=== PATIENT | female | born 1990 | race Caucasian/White ===

== ENCOUNTER → 2016-03-26 | Outpatient (CLI) | payer OTHER ==
[~2016-03-26] MED LIST: COLA100C PO; IBUP60TA PO; MOM30SS PO; PERCOCET PO
--- NOTE | 2016-03-26 15:24 | REP ---
OBSTETRIC SONOGRAPHY: HISTORY: Supervision of followup anatomy, face, ventricular outflow tracts and umbilical cord. FINDINGS: Scanning through the gravid uterus demonstrates a viable single intrauterine gestation in a breech lie. motion is observed and heart rate is recorder 141 beats per minute. Anterior grade 0 placenta is seen without evidence of previa or abruption. Amniotic fluid is subjectively normal. Closed cervical length is 5.0 cm. No extrauterine abnormalities observed. There has been appropriate interval growth. No anomaly is seen. The following anatomic structures are identified and felt to be sonographically unremarkable: cranium, choroid plexus, cavum, cerebellum and posterior fossa, face and profile, lungs, right and left ventricular cardiac outflow tract views, diaphragm, left-sided stomach, abdominal wall cord insertion, three-vessel umbilical cord, kidneys and bladder, spine, upper and lower extremities. Biometry Chart: BPD 6.0 cm = 24 weeks 3 days HC 21.7 cm = 23 weeks 5 days AC 19.9 cm = 24 weeks 4 days FL 4.2 cm = 23 weeks 4 days HL 4.0 cm = 24 weeks 3 days CD 2.7 cm = 24 weeks 3 days HC/AC ratio normal 1.09. Cephalic index normal 0.77. Estimated weight 662 grams, 1 pound 7 ounces, 37th percentile for 24 weeks 2 days. IMPRESSION: Viable single intrauterine gestation at 23 weeks 5 days by today's composite sonographic criteria. Expected gestational age estimate based on prior sonography is 24 weeks 2 days. AVI by prior sonography July 14, 2016. anatomic survey is felt to be complete in conjunction with the prior study. Signed by Thierry Rod MD 03/26/2016 03:40 P
== END ==
LOC: M SMT 10:53
PROVIDERS: ATTEND Obstetrics & Gynecology
DX: Z34.82 Encounter for supervision of other normal pregnancy, second trimester (principal)

== ENCOUNTER → 2016-04-29 | Outpatient (CLI) | payer OTHER ==
[2016-04-29 20:01] LABS: BASO % 0.3 % (0.0-1.0); EOS # 0.2 K/mm3 (0.0-0.50); EOS % 1.9 % (0.0-3.0); LARGE UNSTAINED CELL # 0.1 K/mm3 (0.0-0.4); LARGE UNSTAINED CELL % 0.9 % (0.0-4.0); LYMPH # 1.8 K/mm3 (1.5-6.5); LYMPH % 17.7 % (24.0-44.0); MEAN CORPUSCULAR HEMOGLOBIN 25.3 pg (27.0-33.0); MEAN CORPUSCULAR HGB CONC 31.4 g/dl (32.0-36.5); MEAN CORPUSCULAR VOLUME 80.8 fl (80.0-96.0); MONO # 0.6 K/mm3 (0.0-0.8); MONO % 5.6 % (0.0-5.0); NEUTROPHILS # 7.3 K/mm3 (1.8-7.7); NEUTROPHILS % 73.6 % (36.0-66.0); PLATELET COUNT, AUTOMATED 255 k/mm3 (150-450); RED CELL DISTRIBUTION WIDTH 15.1 % (11.5-14.5); WHITE BLOOD COUNT 9.9 K/mm3 (4.0-10.0)
== END ==
LOC: M WUC 15:25
PROVIDERS: ATTEND Advanced Practice Midwife
DX: O10.013 Pre-existing essential hypertension complicating pregnancy, third trimester (principal); Z3A.00 Weeks of gestation of pregnancy not specified

== ENCOUNTER → 2016-05-14 | Outpatient (REF) | payer OTHER | LOC: M LAB REF 17:10 | PROVIDERS: ATTEND Advanced Practice Midwife | DX: Z34.83 Encounter for supervision of other normal pregnancy, third trimester (principal) ==

== ENCOUNTER → 2016-05-22 | Outpatient (CLI) | payer OTHER ==
--- NOTE | 2016-05-22 12:24 | REP ---
OB ULTRASOUND AND BIOPHYSICAL PROFILE: Real-time sonographic evaluation of the gravid uterus is performed. There is a single living intrauterine gestation. The estimated gestational age is 32 weeks 3 days with EDC 07/14/2016. Amniotic fluid is within normal limits. ROYCE 15.4 within normal range of 8.5 to 24.3. Biophysical profile score 8 out of 8. S/D ratio 2.41 within the normal of 2.25 to 3.25. RI is 0.59 lower limits of normal range 0.59 to 0.75. position is vertex. Placenta anterior and grade 3 with no previa or abruption. IMPRESSION: Biophysical profile score 8 out of 8. Signed by Juanjose Dobbs MD 05/22/2016 01:27 P
== END ==
LOC: M RAD 11:18
PROVIDERS: ATTEND Advanced Practice Midwife
DX: O10.013 Pre-existing essential hypertension complicating pregnancy, third trimester (principal); Z3A.32 32 weeks gestation of pregnancy

== ENCOUNTER → 2016-05-29 | Outpatient (CLI) | payer OTHER ==
--- NOTE | 2016-05-29 12:11 | REP ---
Clinical: Anatomical evaluation. Comparison: 05/22/2016 . Findings: Examination demonstrates a single live intrauterine in cephalic presentation. motion is identified by technologist. Placenta is noted anterior fundal and grade 2 without evidence for placenta previa or abruption. Amniotic fluid volume is normal. Cervix measures 4.2 cm in length and appears closed. Nuchal cord cannot be excluded. Gestational age by LMP 33 weeks 1 day with AVI 07/16/2016 . Gestational age by first US 33 weeks 3 days with AVI 07/14/2016 . FHR equals 144 beats per minute. Biophysical profile score equals 8/8. Umbilical cord SD ratio equals 2.72 (2.0 - 3.0) Impression: Single live intrauterine in cephalic presentation. Nuchal cord cannot be excluded. Biophysical profile score equals 8/8. Signed by Ernie Helton MD 05/29/2016 12:02 P
== END ==
LOC: M RAD 11:11
PROVIDERS: ATTEND Advanced Practice Midwife
DX: Z36 Encounter for antenatal screening of mother (principal); Z3A.33 33 weeks gestation of pregnancy

== ENCOUNTER → 2016-06-04 | Outpatient (CLI) | payer OTHER ==
[~2016-06-04] MED LIST changes: -COLA100C PO; +COLA100C3 PO
--- NOTE | 2016-06-04 11:45 | REP ---
OB ULTRASOUND BIOPHYSICAL PROFILE: Real-time sonographic evaluation of gravid uterus performed. There is a single living intrauterine gestation. The estimated gestational age is 34 weeks 0 days with EDC 07/16/2016. Cervix is closed and measures 3.6 cm in length. heart rate 128 beats per minute. Amniotic fluid within normal limits. ROYCE 12.8 within normal range of 8.1 to 24.8. Biophysical profile score 8 out of 8. S/D ratio 2.53 within normal range of 2.0 to 3.0. RI 0.60 within normal range of 0.59 to 0.75. kidneys and bladder are visualized and are grossly unremarkable. position vertex. Placenta is anterior and grade 2 with no previa or abruption. There may be a nuchal cord. IMPRESSION: Biophysical profile score 8 out of 8. Signed by Juanjose Dobbs MD 06/04/2016 04:51 P
== END ==
LOC: M RAD 10:14
PROVIDERS: ATTEND Advanced Practice Midwife
DX: O10.013 Pre-existing essential hypertension complicating pregnancy, third trimester (principal); Z3A.34 34 weeks gestation of pregnancy

== ENCOUNTER → 2016-06-12 | Outpatient (CLI) | payer OTHER ==
--- NOTE | 2016-06-12 15:00 | REP ---
OB ULTRASOUND: Real-time sonographic evaluation of the gravid uterus is performed utilizing transabdominal technique. There is a single living intrauterine gestation. Estimated gestational age 35 weeks 1 days, EDC 07/16/2016. Today's measurements indicate appropriate growth. BPD 89 mm = 35 weeks 5 days, 60th percentile HC 315 mm = 35 weeks 2 days, 53rd percentile AC 335 mm = 37 weeks 3 days, 84th percentile Femur length 69 mm = 35 weeks 3 days, 55th percentile HC/AC ratio 0.94 within normal range. Estimated weight 2954 grams, 74th percentile. Cervix is closed and measures 4.4 cm in length. heart rate 157 beats per minute. Amniotic fluid within normal limits. ROYCE is 17.8 within normal range of 7.9-24.9. Biophysical profile score 8 out of 8. S/D ratio normal at 2.03. RI 0.51 slightly below normal range of 0.59 to 0.75. stomach, kidneys, bladder, and spine are visualized and are grossly unremarkable. position vertex. Placenta is anterior and grade 2 with no previa or abruption. I cannot exclude a nuchal cord. IMPRESSION: Appropriate growth. Normal ROYCE. Biophysical profile score 8 out of 8. Signed by Juanjose Dobbs MD 06/12/2016 03:30 P
== END ==
LOC: M RAD 10:12
PROVIDERS: ATTEND Advanced Practice Midwife
DX: O10.013 Pre-existing essential hypertension complicating pregnancy, third trimester (principal); Z3A.35 35 weeks gestation of pregnancy

== ENCOUNTER → 2016-06-17 | Outpatient (REF) | payer OTHER | LOC: M LAB REF 17:01 | PROVIDERS: ATTEND Specialist | DX: O10.013 Pre-existing essential hypertension complicating pregnancy, third trimester (principal); Z3A.00 Weeks of gestation of pregnancy not specified ==

== ENCOUNTER → 2016-06-18 | Outpatient (CLI) | payer OTHER ==
--- NOTE | 2016-06-19 03:33 | REP ---
Clinical: Essential hypertension for Biophysical profile. Comparison: 06/12/2016. Findings: Ultrasound examination demonstrates a single live advanced gestation in cephalic presentation. Placenta is noted anteriorly and grade III without evidence for placenta previa or abruption. Nuchal cord cannot be excluded. Gestational age by LMP 36 weeks 0 days with AVI 07/16/2016 Biophysical profile score equals 8/8. heart rate equals 141 beats per minute. Amniotic fluid index equals 17.4 cm (7.7 - 24.9). Impression: Biophysical profile score equals 8/8. Nuchal cord cannot be excluded. Signed by Ernie Helton MD 06/19/2016 03:25 A
== END ==
LOC: M RAD 10:26
PROVIDERS: ATTEND Advanced Practice Midwife
DX: Z36 Encounter for antenatal screening of mother (principal); Z3A.36 36 weeks gestation of pregnancy

== ENCOUNTER → 2016-06-25 | Outpatient (CLI) | payer OTHER ==
[~2016-06-25] MED LIST changes: +LABE10TAB PO
--- NOTE | 2016-06-25 20:33 | REP ---
Clinical: Gestational diabetes for biophysical profile. Comparison: 420 . Findings: Examination demonstrates a single live intrauterine in cephalic presentation. motion is identified by technologist. Placenta is noted anteriorly and grade II without evidence for placenta previa or abruption. Amniotic fluid volume is normal. Cervix measures 3.5 cm in length and appears closed. No evidence for nuchal cord. Gestational age by LMP 37 weeks 0 days with AVI 07/16/2016 . Gestational age by first ultrasound 37 weeks 2 days with AVI 07/14/2016 . FHR equals 139 beats per minute. Amniotic fluid index equals 15.8 cm (7.5 - 24.4). Umbilical cord SD ratio equals 2.52 (1.60 - 2.60). Impression: Single live advanced gestation in cephalic presentation. Biophysical profile score equals 8/8. Amniotic fluid index equals 15.8 cm. Signed by Ernie Helton MD 06/25/2016 04:45 P
== END ==
LOC: M RAD 09:51
PROVIDERS: ATTEND Advanced Practice Midwife
DX: O10.013 Pre-existing essential hypertension complicating pregnancy, third trimester (principal); Z3A.37 37 weeks gestation of pregnancy

== ENCOUNTER 2016-07-02 05:38 | Inpatient (IN) | payer OTHER ==
[~2016-07-02] VITALS: Ht 162.6 cm; Wt 138.0 kg
[2016-07-02] VITALS (7 sets, daily range): BP systolic 105–187; BP diastolic 55–85
[2016-07-02] MEDS ORDERED: BICITRA 30ML SOLN UDC PO ONE (06:00)
[2016-07-02] MEDS ORDERED: LR 800 ML IV ONE (06:00)
[2016-07-02] MEDS ORDERED: LR 1,000 ML IV SCH ×2 (06:30→09:45)
[2016-07-02] MEDS ORDERED: FERR325T3 PO (06:45)
[2016-07-02 06:55] LABS: MEAN CORPUSCULAR HEMOGLOBIN 26.1 pg (27.0-33.0); MEAN CORPUSCULAR HGB CONC 32.4 g/dl (32.0-36.5); MEAN CORPUSCULAR VOLUME 80.7 fl (80.0-96.0); RED CELL DISTRIBUTION WIDTH 16.7 % (11.5-14.5)
[2016-07-02] MEDS ORDERED: NALBUPHINE HCL 10 MG/ML AMP (J2300) IV PRN ×2 (07:30→09:45)
[2016-07-02] MEDS ORDERED: NALOXONE INJ 0.4 MG/1 ML VIAL (J2310) IV PRN ×2 (07:30)
[2016-07-02] MEDS ORDERED: ONDANSETRON 4MG/2ML VIAL (J2405) IV PRN ×3 (07:30→09:45)
[2016-07-02] MEDS ORDERED: METOCLOPRAMIDE INJ 10MG/2ML VIAL (J2765) IV PRN ×2 (07:30→09:45)
[2016-07-02] MEDS ORDERED: ONDANSETRON 4MG/2ML VIAL (J2405) As Ordered ONE (08:08)
[2016-07-02] MEDS ORDERED: PHENYLephrine HCL 500 MCG/5 ML (100MCG/ML) SYRINGE (J2370) As Ordered ONE ×2 (08:08→08:17)
[2016-07-02] MEDS ORDERED: OXYTOCIN INJ 10 UNITS/ML VIAL (J2590) As Ordered ONE (08:08)
[2016-07-02] MEDS ORDERED: MORPHINE PRES-FREE INJ 10 MG/10 ML VIAL (J2274) As Ordered ONE (08:08)
[2016-07-02] MEDS ORDERED: KETOROLAC 60 MG/2 ML VIAL (J1885) As Ordered ONE (08:48)
[2016-07-02] MEDS: PRENATAL VITAMIN TAB PO SCH (09:00)
[2016-07-02] MEDS ORDERED: PERCOCET 5MG/325MG TAB PO PRN ×2 (09:30→09:45)
[2016-07-02] MEDS ORDERED: DOCUSATE SODIUM 100 MG CAP PO PRN (09:30)
[2016-07-02] MEDS ORDERED: MEASLES,MUMPS,RUBELLA VACCINE INJ (MMR-II) (90707) SC SCH (09:30)
[2016-07-02] MEDS ORDERED: OXYTOCIN DRIP 30 UNITS in APPROPRIATE DILUENT 1 EA IV ONE (09:30)
[2016-07-02] MEDS ORDERED: RHOGAM 300 MCG (1500 IU) INJ (J2790) IM SCH (09:30)
[2016-07-02] MEDS ORDERED: fentaNYL 100 MCG/2 ML INJECTION (J3010) IV PRN (09:45)
[2016-07-02] MEDS ORDERED: MEPERIDINE INJ 25 MG/ML VIAL (J2175) IV PRN (09:45)
--- NOTE | 2016-07-02 14:11 | RO ---
DATE OF PROCEDURE: 07/02/2016 PREPROCEDURE DIAGNOSIS: 38 weeks, chronic hypertension, prior section times two. POSTPROCEDURE DIAGNOSIS: 38 weeks, chronic hypertension, prior section times two. PROCEDURE: Repeat low transverse section and bilateral tubal ligation. SURGEON: Dr. Aram Romano PET STORE MERCHANDISER: Rut Bustos CNM ANESTHESIA: Spinal. ESTIMATED BLOOD LOSS: 600 mL. FINDINGS: 8 pound 3 ounce, 3722 gram, female , Apgars 8 and 9, vertex position. 2-3 cm paratubal cyst involving the left distal fallopian tube. Otherwise normal pelvis. There were omental adhesions to the anterior abdominal wall and moderate scarring of the bladder flap anteriorly. DESCRIPTION OF PROCEDURE: The patient was taken to the operating room where spinal anesthesia was induced. She was prepped and draped in sterile fashion in the supine position. A Meier catheter was placed. A Pfannenstiel skin incision was made with the scalpel and carried through to the fascia. The fascia was nicked and extended and the fascia was dissected off the rectus muscles. The peritoneal cavity was entered. A bladder flap was created. A curvilinear incision was made in the lower uterine segment until the bulging membranes were noted. This was extended manually. Membranes ruptured with clear fluid. The infant delivered in the vertex position without difficulty. The shoulders delivered with ease. The infant cried spontaneously and was handed to the awaiting nurses. The placenta was expressed. The uterus was exteriorized and cleared of debris. The uterine incision was closed with #0 Vicryl in a running locked fashion. A second imbricating layer of #0 Vicryl was placed. The left fallopian tube was noted to have a paratubal cyst at the distal ends. A Gabriela clamp was used to cross clamp the distal end of the fallopian tube, including the fimbria. This included the paratubal cyst. The segment of tube was excised and secured with #0 Vicryl suture. The right fallopian tube was grasped at its mid portion with a Cari clamp. A window was created in the peritoneum. A knuckle of tube was secured with #3-0 chromic on either side of the Cari clamps. The segment of tube was sent to pathology. The uterus was placed back in the abdominal cavity. Omental adhesions to the interior abdominal wall were taken down sharply. The peritoneum was closed with #2-0 Vicryl in a running fashion. The fascia was closed with #0 Vicryl in a running fashion. The deep layer was irrigated and closed with #3-0 chromic. The skin was closed with #4-0 Monocryl subcuticular sutures. Sponge, instrument and needle counts were correct.
[2016-07-02] MEDS: KETOROLAC 30 MG/ML VIAL (J1885) IV SCH ×2 (15:15→20:52)
[2016-07-02] MEDS: LR 1,000 ML IV SCH ×2 (16:50→17:21)
[2016-07-03] MEDS: LR 1,000 ML IV SCH (01:21)
[2016-07-03 01:48] VITALS: BP 133/59
[2016-07-03] MEDS: KETOROLAC 30 MG/ML VIAL (J1885) IV SCH (02:39)
[2016-07-03 05:42] VITALS: BP 122/56
[2016-07-03] MEDS: PERCOCET 5MG/325MG TAB PO PRN ×3 (06:40→19:52)
[2016-07-03 07:03] LABS: MEAN CORPUSCULAR HEMOGLOBIN 26.6 pg (27.0-33.0); MEAN CORPUSCULAR HGB CONC 32.5 g/dl (32.0-36.5); MEAN CORPUSCULAR VOLUME 81.7 fl (80.0-96.0); RED CELL DISTRIBUTION WIDTH 17.1 % (11.5-14.5)
[2016-07-03] MEDS: PRENATAL VITAMIN TAB PO SCH (08:27)
[2016-07-03 10:30] VITALS: BP 134/63
[2016-07-03] MEDS: IBUPROFEN 800 MG TAB PO SCH ×2 (11:20→18:49)
[2016-07-03 14:30] VITALS: BP 129/60
[2016-07-03] MEDS ORDERED: OXYC1TAB23 PO (16:42)
[2016-07-03 18:00] VITALS: BP 133/62
[2016-07-03 21:44] VITALS: BP 129/68
[2016-07-04] MEDS: PERCOCET 5MG/325MG TAB PO PRN ×2 (00:38→07:47)
[2016-07-04] MEDS: IBUPROFEN 800 MG TAB PO SCH ×2 (02:09→10:20)
[2016-07-04 05:53] VITALS: BP 132/68
[2016-07-04] MEDS: PRENATAL VITAMIN TAB PO SCH (07:47)
[2016-07-04] MEDS ORDERED: COLA100C3 PO (10:00)
[2016-07-04] MEDS ORDERED: IBUP-1114 PO (10:00)
--- NOTE | 2016-07-05 07:48 | DSES ---
DATE OF ADMISSION: 07/02/2016 DATE OF DISCHARGE: 07/04/2016 DISCHARGE DIAGNOSES: 1. Chronic hypertension. 2. Repeat section with bilateral tubal ligation. PROCEDURE PERFORMED WHILE IN HOSPITAL: 1. Spinal anesthesia. 2. Repeat section. 3. Bilateral tubal ligation. DISCHARGE CONDITION: Stable. HISTORY AND HOSPITAL COURSE: This patient is a 26-year-old who presented for repeat section at 38 weeks secondary to chronic hypertension and a history of prior two sections. She also expressed satisfied parity, undesired fertility. She underwent an uncomplicated section with bilateral tubal ligation productive of a liveborn female infant, score 8 and 9. Weight was 8 pounds 3 ounces (3722 grams). Estimated blood loss was 600 mL. She did well postoperatively, and by postoperative day #2 had met all discharge criteria, was discharged home in stable condition. PHYSICAL EXAMINATION: On day of discharge, her vital signs were stable. She was afebrile. General appearance was well appearing, no acute distress. Her abdomen was soft, nondistended and nontender. Incision was clean, dry, intact, well approximated. Extremities negative for calf tenderness. DISCHARGE MEDICATION: - Percocet DISCHARGE INSTRUCTIONS: 1. She was instructed to followup in 2 weeks for an incision check appointment. 2. Remain on pelvic rest for 6 weeks. 3. Report severe pain, heavy vaginal bleeding, fever or incisional issue.
== END 2016-07-04 12:30 | disposition home or self-care (01) | DRG 540 ==
LOC: M LDI 05:38 → M OBS 11:10
PROVIDERS: ADMIT Specialist; ATTEND Specialist
PROC: 0UB70ZZ Excision of Bilateral Fallopian Tubes, Open Approach (ICD-10-PCS; 2016-07-02)
PROC: 10D00Z1 Extraction of Products of Conception, Low, Open Approach (ICD-10-PCS; principal; 2016-07-02 07:30)
DX: O34.211 Maternal care for low transverse scar from previous cesarean delivery (principal); O10.92 Unspecified pre-existing hypertension complicating childbirth; Z37.0 Single live birth; Z3A.38 38 weeks gestation of pregnancy

== ENCOUNTER → 2016-11-28 | Outpatient (CLI) | payer OTHER ==
[~2016-11-28] MED LIST changes: -COLA100C3 PO; +COLA100C5 PO; +FERR325T3 PO; +IBUP-1114 PO; +OXYC1TAB23 PO
--- NOTE | 2016-11-28 12:43 | REP ---
LUMBAR SPINE, SIX VIEWS: HISTORY: Back pain. There is no acute fracture or subluxation. The L4-5 intervertebral disc is decreased in height consistent with disc degeneration. The facet joints are normal in appearance. IMPRESSION: Degenerative change as described above. Signed by Aram Keith MD 11/28/2016 12:45 P
--- NOTE | 2016-11-28 12:48 | REP ---
SACRUM AND COCCYX, THREE VIEWS: HISTORY: Back pain. There is no acute fracture or dislocation. The L4-5 intervertebral disc is decreased in height consistent with disc degeneration. IMPRESSION: Degenerative change as described above. Signed by Aram Keith MD 11/28/2016 01:01 P
--- NOTE | 2016-11-28 12:52 | REP ---
SI JOINTS, FOUR VIEWS: HISTORY: Back pain. There is no acute fracture or dislocation. The joint spaces are normal in appearance. IMPRESSION: Normal study. Signed by Aram Keith MD 11/28/2016 01:02 P
== END ==
LOC: M WUC 11:15
PROVIDERS: ATTEND Internal Medicine Cardiovascular Disease
DX: M51.36 Other intervertebral disc degeneration, lumbar region (principal)

== ENCOUNTER → 2017-01-08 | Outpatient (REF) | payer OTHER | LOC: M LAB REF 12:29 | PROVIDERS: ATTEND Physician Assistant | DX: J02.9 Acute pharyngitis, unspecified (principal) ==

== ENCOUNTER → 2017-04-20 | Outpatient (CLI) | payer OTHER ==
[2017-04-20 14:59] LABS: ALBUMIN 3.9 GM/DL (3.2-5.2); ALBUMIN/GLOBULIN RATIO 1.08 (1.00-1.93); ALKALINE PHOSPHATASE 75 U/L (45-117); ALT/SGPT 19 U/L (12-78); ANION GAP 6 MEQ/L (8-16); AST/SGOT 11 U/L (7-37); BILIRUBIN,TOTAL 0.3 MG/DL (0.2-1.0); BLOOD UREA NITROGEN 13 MG/DL (7-18); CALCIUM LEVEL 8.6 MG/DL (8.5-10.1); CARBON DIOXIDE LEVEL 27 MEQ/L (21-32); CHLORIDE LEVEL 108 MEQ/L (98-107); CHOLESTEROL LEVEL 181 MG/DL (<200); CHOLESTEROL RISK RATIO 3.016 (<5); GLOMERULAR FILTRATION RATE > 60.0 (>60); GLUCOSE, FASTING 86 MG/DL (70-100); HDL CHOLESTEROL 60 MG/DL (>40); LDL CHOLESTEROL 108.6 MG/DL (<100); NON-HDL-C 121 MG/DL; POTASSIUM SERUM 4.4 MEQ/L (3.5-5.1); SODIUM LEVEL 141 MEQ/L (136-145); TOTAL PROTEIN 7.5 GM/DL (6.4-8.2); TRIGLYCERIDES LEVEL 62 MG/DL (<150)
[2017-04-20 15:02] LABS: BASO # 0.1 10^3/uL (0.0-0.2); BASO % 0.7 % (0.0-1.0); EOS # 0.2 10^3/uL (0.0-0.50); EOS % 2.2 % (0.0-3.0); HEMATOCRIT 36.4 % (36.0-47.0); IMMATURE GRANULOCYTE % 0.3 % (0-3.0); LYMPH # 1.9 10^3/uL (1.5-6.5); LYMPH % 28.1 % (24.0-44.0); MEAN CORPUSCULAR HEMOGLOBIN 23.9 pg (27.0-33.0); MEAN CORPUSCULAR HGB CONC 30.2 g/dl (32.0-36.5); MONO # 0.5 10^3/uL (0.0-0.8); MONO % 7.7 % (0.0-5.0); NEUTROPHILS # 4.2 10^3/uL (1.8-7.7); PLATELET COUNT, AUTOMATED 311 10^3/uL (150-450); RED BLOOD COUNT 4.61 10^6/uL (4.00-5.40); WHITE BLOOD COUNT 6.9 10^3/uL (4.0-10.0)
[2017-04-20 15:14] LABS: ESTIMATED AVERAGE GLUCOSE 105 MG/DL (60-110); HEMOGLOBIN A1c 5.3 %
== END ==
LOC: M SMT 14:25
DX: E66.01 Morbid (severe) obesity due to excess calories (principal); Z68.42 Body mass index [BMI] 45.0-49.9, adult; Z79.899 Other long term (current) drug therapy
CPT/HCPCS: 80053

== ENCOUNTER → 2017-04-20 | Outpatient (CLI) | payer OTHER | LOC: M SMT 08:55 | DX: E66.01 Morbid (severe) obesity due to excess calories (principal); Z79.899 Other long term (current) drug therapy; Z68.42 Body mass index [BMI] 45.0-49.9, adult; Z53.9 Procedure and treatment not carried out, unspecified reason ==

== ENCOUNTER → 2017-08-20 | Outpatient (CLI) | payer OTHER | LOC: M RAD 10:51 | DX: N93.8 Other specified abnormal uterine and vaginal bleeding (principal); N85.2 Hypertrophy of uterus | CPT/HCPCS: 76856 ==

== ENCOUNTER → 2018-02-17 | Outpatient (CLI) | payer BC, OTHER ==
[2018-02-17 12:52] LABS: BASO # 0.1 10^3/uL (0.0-0.2); BASO % 0.8 % (0.0-1.0); EOS # 0.1 10^3/uL (0.0-0.50); EOS % 1.7 % (0.0-3.0); HEMATOCRIT 34.7 % (36.0-47.0); HEMOGLOBIN 10.2 g/dl (12.0-15.5); LYMPH # 2.3 10^3/uL (1.5-6.5); LYMPH % 29.6 % (24.0-44.0); MEAN CORPUSCULAR HEMOGLOBIN 22.3 pg (27.0-33.0); MEAN CORPUSCULAR HGB CONC 29.4 g/dl (32.0-36.5); MEAN CORPUSCULAR VOLUME 75.9 fl (80.0-96.0); MONO # 0.6 10^3/uL (0.0-0.8); MONO % 7.2 % (0.0-5.0); NEUTROPHILS # 4.6 10^3/uL (1.8-7.7); NEUTROPHILS % 60.2 % (36.0-66.0); PLATELET COUNT, AUTOMATED 325 10^3/uL (150-450); RED BLOOD COUNT 4.57 10^6/uL (4.00-5.40); WHITE BLOOD COUNT 7.6 10^3/uL (4.0-10.0)
[2018-02-17 13:32] LABS: ALBUMIN 3.6 GM/DL (3.2-5.2); ALT/SGPT 18 U/L (12-78); BILIRUBIN,TOTAL 0.3 MG/DL (0.2-1.0); BLOOD UREA NITROGEN 15 MG/DL (7-18); CALCIUM LEVEL 8.3 MG/DL (8.5-10.1); CARBON DIOXIDE LEVEL 25 MEQ/L (21-32); CHLORIDE LEVEL 105 MEQ/L (98-107); CHOLESTEROL LEVEL 158 MG/DL (<200); CHOLESTEROL RISK RATIO 3.038 (<5); CORTISOL BASELINE 7.7 UG/DL (4.3-22.4); CREATININE FOR GFR 0.66 MG/DL (0.55-1.30); FOLLICLE STIMULATING HORMONE 4.8 mIU/mL; FREE T4 0.79 NG/DL (0.76-1.46); GLOMERULAR FILTRATION RATE > 60.0 (>60); GLUCOSE, FASTING 75 MG/DL (70-100); HDL CHOLESTEROL 52 MG/DL (>40); IRON (FE) 20 UG/DL (50-170); LDL CHOLESTEROL 91 MG/DL (<100); LUTEINIZING HORMONE 9.2 mIU/mL; NON-HDL-C 106 MG/DL; POTASSIUM SERUM 4.2 MEQ/L (3.5-5.1); SODIUM LEVEL 140 MEQ/L (136-145); TOTAL PROTEIN 7.3 GM/DL (6.4-8.2); TRIGLYCERIDES LEVEL 73 MG/DL (<150)
== END ==
LOC: M WUC 11:05
PROVIDERS: ATTEND Physician Assistant Medical
DX: I10 Essential (primary) hypertension (principal); E78.2 Mixed hyperlipidemia; R53.83 Other fatigue; D64.9 Anemia, unspecified

== ENCOUNTER → 2018-09-05 | Outpatient (CLI) | payer BC ==
[~2018-09-05] MED LIST changes: +IBUP600T42 PO; -IBUP60TA PO
[2018-09-05 13:19] LABS: BASO # 0.1 10^3/uL (0.0-0.2); BASO % 0.8 % (0.0-1.0); EOS # 0.1 10^3/uL (0.0-0.50); HEMATOCRIT 33.6 % (36.0-47.0); HEMOGLOBIN 10.2 g/dl (12.0-15.5); LYMPH # 1.9 10^3/uL (1.5-4.5); LYMPH % 31.4 % (24.0-44.0); MEAN CORPUSCULAR HEMOGLOBIN 23.3 pg (27.0-33.0); MEAN CORPUSCULAR HGB CONC 30.4 g/dl (32.0-36.5); MEAN CORPUSCULAR VOLUME 76.7 fl (80.0-96.0); MONO # 0.4 10^3/uL (0.0-0.8); MONO % 6.3 % (0.0-5.0); NEUTROPHILS # 3.6 10^3/uL (1.8-7.7); NEUTROPHILS % 59.3 % (36.0-66.0); PLATELET COUNT, AUTOMATED 353 10^3/uL (150-450); RED BLOOD COUNT 4.38 10^6/uL (4.00-5.40)
[2018-09-05 13:35] LABS: INR 1.1; PARTIAL THROMBOPLASTIN TIME 30.9 SECONDS (25.0-38.4); PROTHROMBIN TIME 13.9 SECONDS (11.8-14.0)
[2018-09-05 13:47] LABS: ALBUMIN 3.6 GM/DL (3.2-5.2); ALT/SGPT 24 U/L (12-78); BILIRUBIN,TOTAL 0.4 MG/DL (0.2-1.0); BLOOD UREA NITROGEN 9 MG/DL (7-18); CALCIUM LEVEL 8.3 MG/DL (8.5-10.1); CARBON DIOXIDE LEVEL 27 MEQ/L (21-32); CHLORIDE LEVEL 106 MEQ/L (98-107); CREATININE FOR GFR 0.67 MG/DL (0.55-1.30); FERRITIN 6 NG/ML (8-252); GLOMERULAR FILTRATION RATE > 60.0 (>60); GLUCOSE, FASTING 83 MG/DL (70-100); IRON (FE) 18 UG/DL (50-170); PERCENT SATURATION 3.9 % (13.2-45.0); POTASSIUM SERUM 4.2 MEQ/L (3.5-5.1); SODIUM LEVEL 138 MEQ/L (136-145); TOTAL 25(OH) VITAMIN D 18.9 NG/ML (30.0-100.0); TOTAL IRON BINDING CAPACITY 458 UG/DL (250-450); TOTAL PROTEIN 7.5 GM/DL (6.4-8.2)
[2018-09-07 14:29] LABS: DEHYDROEPIANDROSTERONE SULFATE 129.1 ug/dL (84.8-378.0); TESTOSTERONE FREE (DIRECT) 0.9 pg/mL (0.0-4.2)
== END ==
LOC: M SMT 09:48
PROVIDERS: ATTEND Physician Assistant
DX: D50.9 Iron deficiency anemia, unspecified (principal); E55.9 Vitamin D deficiency, unspecified; R53.83 Other fatigue; L65.9 Nonscarring hair loss, unspecified; R23.3 Spontaneous ecchymoses

== ENCOUNTER → 2019-05-23 | Outpatient (REF) | payer OTHER, MEDICAID ==
[2019-05-23 12:53] LABS: BASO # 0.1 10^3/uL (0.0-0.2); BASO % 0.8 % (0.0-1.0); EOS # 0.1 10^3/uL (0.0-0.5); EOS % 1.9 % (0.0-3.0); HEMOGLOBIN 12.1 g/dl (12.0-15.5); LYMPH # 2.1 10^3/uL (1.5-5.0); LYMPH % 29.6 % (24.0-44.0); MEAN CORPUSCULAR HEMOGLOBIN 24.4 pg (27.0-33.0); MEAN CORPUSCULAR HGB CONC 30.3 g/dl (32.0-36.5); MEAN CORPUSCULAR VOLUME 80.8 fl (80.0-96.0); MONO # 0.5 10^3/uL (0.0-0.8); MONO % 6.5 % (0.0-5.0); NEUTROPHILS # 4.4 10^3/uL (1.5-8.5); NEUTROPHILS % 61.1 % (36.0-66.0); PLATELET COUNT, AUTOMATED 321 10^3/uL (150-450); RED BLOOD COUNT 4.95 10^6/uL (4.00-5.40); WHITE BLOOD COUNT 7.2 10^3/uL (4.0-10.0)
[2019-05-23 13:12] LABS: ALBUMIN 3.4 GM/DL (3.2-5.2); ALT/SGPT 17 U/L (12-78); BILIRUBIN,TOTAL 0.4 MG/DL (0.2-1.0); BLOOD UREA NITROGEN 9 MG/DL (7-18); CALCIUM LEVEL 8.5 MG/DL (8.5-10.1); CARBON DIOXIDE LEVEL 26 MEQ/L (21-32); CHLORIDE LEVEL 107 MEQ/L (98-107); CHOLESTEROL LEVEL 199 MG/DL (<200); CHOLESTEROL RISK RATIO 3.685 (<5); CREATININE FOR GFR 0.74 MG/DL (0.55-1.30); FREE T4 0.93 NG/DL (0.76-1.46); GLOMERULAR FILTRATION RATE > 60.0 (>60); GLUCOSE, FASTING 84 MG/DL (70-100); HDL CHOLESTEROL 54 MG/DL (>40); LDL CHOLESTEROL 122 MG/DL (<100); NON-HDL-C 145 MG/DL; POTASSIUM SERUM 4.2 MEQ/L (3.5-5.1); SODIUM LEVEL 138 MEQ/L (136-145); TOTAL PROTEIN 7.7 GM/DL (6.4-8.2); TRIGLYCERIDES LEVEL 114 MG/DL (<150)
[2019-05-23 13:50] LABS: HEMOGLOBIN A1c 5.3 %
== END ==
LOC: M LAB REF 12:16
PROVIDERS: ATTEND Nurse Practitioner Family
DX: F41.8 Other specified anxiety disorders (principal); E66.01 Morbid (severe) obesity due to excess calories; G47.9 Sleep disorder, unspecified; R53.82 Chronic fatigue, unspecified

== ENCOUNTER → 2019-06-30 | Outpatient (REF) | payer OTHER, MEDICAID | LOC: M SFHCWAGY 17:42 | PROVIDERS: ATTEND Specialist | DX: R87.5 Abnormal microbiological findings in specimens from female genital organs (principal) ==

== ENCOUNTER → 2019-07-12 | Outpatient (CLI) | payer OTHER ==
--- NOTE | 2019-07-18 12:14 | SLEEPHOME ---
DATE OF STUDY: 07/12/2019 ORDERED BY: Ilda Madrigal Diagnostic home sleep testing was performed due to concern for the obstructive sleep apnea syndrome in this patient with a history of excessive somnolence and nonrestorative sleep. For testing, a nocturnal T3 respiratory monitoring device was used. Continuous record was made of pulse, oxygen saturation, airflow, chest and abdominal strain and body position. 9 hours and 59 minutes of data were reviewed. There were 7 hours and 36 minutes marked as time in bed. During the interval marked time in bed, there were 48 respiratory events identified of 10 seconds in duration or greater for a respiratory event index of 6.3. The events were primarily obstructive, 4 mixed apneas were seen. Baseline pulse rate was 59 beats per minute, pulse rate ranged 45-102. Baseline saturation was 96%, saturations fell to 81%. Testing was performed in both the supine and nonsupine positions. IMPRESSION: Abnormal home sleep testing with repetitive respiratory events and oxygen desaturations to 81% with a respiratory event index of 6.3 is consistent with the obstructive sleep apnea syndrome. RECOMMENDATION: The patient should be encouraged to undergo formal sleep evaluation.
== END ==
LOC: M SLEEP HO 11:33
PROVIDERS: ATTEND Nurse Practitioner Family
DX: R06.83 Snoring (principal)

== ENCOUNTER → 2019-08-14 | Outpatient (CLI) | payer OTHER ==
[~2019-08-14] MED LIST changes: +LARI1TAB9 PO; +MELO15TA28 PO; +ZOLO50TA PO
== END ==
LOC: M LABSMTC 10:55
PROVIDERS: ATTEND Anesthesiology
DX: Z03.818 Encounter for observation for suspected exposure to other biological agents ruled out (principal); Z11.59 Encounter for screening for other viral diseases
CPT/HCPCS: 87486; 87581; 87633; 87798; C9803

== ENCOUNTER 2019-08-16 10:05 | Day surgery (SDC) | payer OTHER ==
[~2019-08-16] VITALS: Ht 162.6 cm; Wt 138.3 kg
[~2019-08-16 10:05] MED LIST changes: +LR 1,000 ML IV ONE
[2019-08-16] MEDS ORDERED: fentaNYL 250 MCG/5 ML INJECTION (J3010) As Ordered ONE (10:36)
[2019-08-16] MEDS ORDERED: propofoL 200 MG/20 ML VIAL As Ordered ONE ×2 (10:37→12:03)
[2019-08-16] MEDS ORDERED: ONDANSETRON 4MG/2ML VIAL As Ordered ONE (10:37)
[2019-08-16] MEDS ORDERED: MIDAZOLAM INJ 2MG/2ML VIAL (J2250 PER 1MG) As Ordered ONE (10:37)
[2019-08-16] MEDS ORDERED: KETOROLAC 60MG 2ML VIAL As Ordered ONE (10:37)
[2019-08-16] MEDS ORDERED: dexameTHASONE 4 MG/ML 1ML VIAL (J1100 PER 1MG) As Ordered ONE (10:37)
[2019-08-16] MEDS ORDERED: LIDOCAINE 2% 100MG/5ML SDV (FOR ANES.) As Ordered ONE (10:37)
[2019-08-16 10:49] LABS: HEMOGLOBIN 12.9 g/dl (12.0-15.5); MEAN CORPUSCULAR HGB CONC 32.3 g/dl (32.0-36.5); MEAN CORPUSCULAR VOLUME 83.9 fl (80.0-96.0); PLATELET COUNT, AUTOMATED 299 10^3/uL (150-450); RED BLOOD COUNT 4.77 10^6/uL (4.00-5.40); WHITE BLOOD COUNT 6.8 10^3/uL (4.0-10.0)
[2019-08-16] MEDS ORDERED: BUPIVACAINE HCL 0.25% 10ML VIAL As Ordered ONE ×2 (11:33→12:14)
[2019-08-16] MEDS ORDERED: ACETAMINOPHEN 1000MG 100ML IV BTL (OFIRMEV) (J0131 PER 10MG) As Ordered ONE (12:07)
[2019-08-16 13:13] VITALS: BP 135/60
--- NOTE | 2019-08-17 13:32 | RO ---
DATE OF OPERATION: 08/16/2019 PREOPERATIVE DIAGNOSIS: Menorrhagia. POSTOPERATIVE DIAGNOSIS: Menorrhagia. PROCEDURE: Hysteroscopy, dilation and curettage (D and C), NovaSure endometrial ablation. SURGEON: Aram Romano MD SCANNING SUPERVISOR: ANESTHESIA: Local with sedation. ESTIMATED BLOOD LOSS: 10 mL. FINDINGS: Normal-appearing endometrial cavity. DESCRIPTION OF PROCEDURE: Operative summary: The patient taken to the operating room, where intravenous (IV) sedation was given. She was prepped and draped in sterile fashion in the dorsal lithotomy position. The anterior lip of the cervix was grasped with a tenaculum. The cervix was injected circumferentially with 20 mL of 1% lidocaine. The cervix was dilated with Taper dilators. A diagnostic hysteroscope using normal saline as a distention medium was inserted through the internal os. Visualization of the endometrial cavity revealed the findings noted above. Sharp curettage was performed. A sample of endometrial curetting was sent to pathology. The NovaSure device was assembled and found to be in working order. Endometrial cavity length was 4.5 cm. Cavity width was calculated at 4.5 cm. Total power setting was 111 pedro. A successful cavity assessment was performed. Coagulation was initiated. Total coagulation time was 56 seconds. The NovaSure was removed. The hysteroscope was placed back in the endometrial cavity. An excellent coagulation effect was noted throughout the endometrium. All instruments were removed. Sponge and instrument counts were correct. The patient went to the recovery room in stable condition.
== END 2019-08-16 13:43 | disposition home or self-care (01) ==
LOC: M SDC 10:05
PROVIDERS: ATTEND Specialist
DX: N92.0 Excessive and frequent menstruation with regular cycle (principal); F41.9 Anxiety disorder, unspecified; F32.9 Major depressive disorder, single episode, unspecified; Z79.899 Other long term (current) drug therapy
CPT/HCPCS: 36415; 58563; 81025; 85027; 88305; J0131; J1885; J2250; J2405; J3010

== ENCOUNTER → 2019-08-25 | Outpatient (REF) | payer OTHER, MEDICAID ==
[~2019-08-25] MED LIST changes: -LR 1,000 ML IV ONE
[2019-08-25 12:20] LABS: BASO # 0.1 10^3/uL (0.0-0.2); BASO % 0.8 % (0.0-1.0); EOS # 0.2 10^3/uL (0.0-0.5); EOS % 2.6 % (0.0-3.0); HEMATOCRIT 41.9 % (36.0-47.0); LYMPH # 2.4 10^3/uL (1.5-5.0); LYMPH % 32.2 % (24.0-44.0); MEAN CORPUSCULAR HEMOGLOBIN 26.6 pg (27.0-33.0); MEAN CORPUSCULAR VOLUME 85.7 fl (80.0-96.0); MONO # 0.5 10^3/uL (0.0-0.8); MONO % 6.7 % (0.0-5.0); NEUTROPHILS # 4.2 10^3/uL (1.5-8.5); NEUTROPHILS % 57.4 % (36.0-66.0); PLATELET COUNT, AUTOMATED 276 10^3/uL (150-450); RED BLOOD COUNT 4.89 10^6/uL (4.00-5.40); WHITE BLOOD COUNT 7.3 10^3/uL (4.0-10.0)
[2019-08-25 12:34] LABS: ALBUMIN 3.4 GM/DL (3.2-5.2); ALT/SGPT 36 U/L (12-78); BILIRUBIN,TOTAL 0.4 MG/DL (0.2-1.0); BLOOD UREA NITROGEN 9 MG/DL (7-18); CALCIUM LEVEL 8.8 MG/DL (8.5-10.1); CARBON DIOXIDE LEVEL 27 MEQ/L (21-32); CHLORIDE LEVEL 106 MEQ/L (98-107); CHOLESTEROL LEVEL 220 MG/DL (<200); CHOLESTEROL RISK RATIO 3.793 (<5); GLOMERULAR FILTRATION RATE > 60.0 (>60); GLUCOSE, FASTING 85 MG/DL (70-100); HDL CHOLESTEROL 58 MG/DL (>40); LDL CHOLESTEROL 141 MG/DL (<100); NON-HDL-C 162 MG/DL; POTASSIUM SERUM 4.4 MEQ/L (3.5-5.1); RHEUMATOID FACTOR QUANT < 10.0 IU/ML (<15.0); SODIUM LEVEL 139 MEQ/L (136-145); TOTAL PROTEIN 7.6 GM/DL (6.4-8.2); TRIGLYCERIDES LEVEL 104 MG/DL (<150); URIC ACID 4.8 MG/DL (2.6-6.0)
[2019-08-25 12:41] LABS: TOTAL 25(OH) VITAMIN D 28.4 NG/ML (30.0-100.0)
[2019-08-25 12:50] LABS: ERYTHROCYTE SEDIMENTATION RATE 14 mm/hr (0-20)
[2019-08-26 13:07] LABS: ANTINUCLEAR ANTIBODIES DIRECT Negative (Negative)
== END ==
LOC: M LAB REF 11:57
PROVIDERS: ATTEND Nurse Practitioner Family
DX: E55.9 Vitamin D deficiency, unspecified (principal); M25.549 Pain in joints of unspecified hand; J45.909 Unspecified asthma, uncomplicated; F41.9 Anxiety disorder, unspecified; Z13.9 Encounter for screening, unspecified; G47.00 Insomnia, unspecified; F41.8 Other specified anxiety disorders; E66.01 Morbid (severe) obesity due to excess calories

== ENCOUNTER → 2019-08-27 | Outpatient (REF) | payer OTHER, MEDICAID | LOC: M LAB REF 13:00 | PROVIDERS: ATTEND Physician Assistant Medical | DX: Z11.59 Encounter for screening for other viral diseases (principal); R06.02 Shortness of breath ==

== ENCOUNTER → 2019-10-30 | Outpatient (CLI) | payer OTHER, MEDICAID ==
[2019-10-30 14:14] LABS: C REACTIVE PROTEIN QUANTITATIV 1.67 MG/DL (0.00-0.30)
== END ==
LOC: M WUC 09:59
PROVIDERS: ATTEND Internal Medicine Rheumatology
DX: Z13.0 Encounter for screening for diseases of the blood and blood-forming organs and certain disorders involving the immune mechanism (principal)

== ENCOUNTER → 2019-11-14 | Outpatient (CLI) | payer OTHER | LOC: M LABSMTC 13:53 | PROVIDERS: ATTEND Family Medicine | DX: Z20.828 Contact with and (suspected) exposure to other viral communicable diseases (principal) | CPT/HCPCS: C9803; U0003 ==

== ENCOUNTER → 2019-11-20 | Outpatient (CLI) | payer OTHER ==
[2019-11-20 20:09] LABS: BLOOD UREA NITROGEN 14 MG/DL (7-18); C REACTIVE PROTEIN QUANTITATIV 1.32 MG/DL (0.00-0.30); CREATININE FOR GFR 0.76 MG/DL (0.55-1.30); GLOMERULAR FILTRATION RATE > 60.0 (>60)
[2019-11-28 16:08] LABS: ANTINUCLEAR ANTIBODIES DIRECT Negative (Negative); HLA-B27 Negative (.)
== END ==
LOC: M WUC 16:17
PROVIDERS: ATTEND Physician Assistant
DX: M54.2 Cervicalgia (principal)

== ENCOUNTER → 2019-12-16 | Outpatient (CLI) | payer OTHER, MEDICAID | LOC: M WUC 15:44 | PROVIDERS: ATTEND Physical Medicine & Rehabilitation | DX: M54.12 Radiculopathy, cervical region (principal) ==

== ENCOUNTER → 2019-12-18 | Outpatient (CLI) | payer OTHER, MEDICAID ==
--- NOTE | 2019-12-18 19:03 | REP ---
INDICATION: POLYARTHRALIGIA COMPARISON: None. TECHNIQUE: AP, lateral, bilateral oblique, and coned-down views of the lumbar spine. FINDINGS: Alignment and lordosis maintained. Vertebral bodies are intact. Focal endplate sclerosis and disc space narrowing at L5-S1 noted. No acute fracture/compression injury or subluxation. No obvious spondylolysis or spondylolisthesis. IMPRESSION: Focal degenerative spondylosis at L5-S1. <Electronically signed by Ernie Helton > 12/18/19 [id number]
--- NOTE | 2019-12-19 06:52 | REP ---
INDICATION: POLYARTHRALIGIA COMPARISON: None. TECHNIQUE: AP, lateral, bilateral oblique and sunrise views of the right and left knee. FINDINGS: The osseous structures and joint spaces are intact and essentially symmetric and age-appropriate without overt osteoarthritic or inflammatory arthritic changes appreciated. There is no evidence for acute fracture or dislocation. No joint effusion is appreciated. IMPRESSION: Essentially symmetric age-appropriate changes to the bilateral knees. No obvious arthritic changes appreciated. No acute fracture or dislocation. No obvious effusion. <Electronically signed by Ernie Helton > 12/19/19 [id number]
--- NOTE | 2019-12-19 06:53 | REP ---
INDICATION: POLYARTHRALIGIA. COMPARISON: None. TECHNIQUE: AP and oblique (4 total views) of the sacroiliac joints. FINDINGS: The sacroiliac joints are symmetric and normal in appearance. The surrounding osseous structures are intact and normal. IMPRESSION: Normal bilateral sacroiliac joints <Electronically signed by Ernie Helton > 12/19/19 [id number]
== END ==
LOC: M WUC 18:08
PROVIDERS: ATTEND Internal Medicine
DX: M13.0 Polyarthritis, unspecified (principal); M47.897 Other spondylosis, lumbosacral region

== ENCOUNTER → 2020-01-18 | Outpatient (CLI) | payer OTHER ==
--- NOTE | 2020-01-18 13:03 | REP ---
INDICATION: SACROILIAC PAIN. COMPARISON: None TECHNIQUE: Multiple sequences are obtained in the axial, coronal and sagittal planes, centered at the sacroiliac region. FINDINGS: The osseous structures demonstrate no abnormal bone marrow signal. There is no bone marrow edema or occult fracture. No subchondral marrow edema is seen along the sacroiliac joints bilaterally. The adjacent soft tissues demonstrate no abnormal signal. No abnormalities seen in the visualized pelvis. IMPRESSION: Negative MRI sacroiliac joints. <Electronically signed by Juanjose Dobbs > 01/18/20 [id number]
== END ==
LOC: M RAD 08:47
PROVIDERS: ATTEND Internal Medicine
DX: M53.3 Sacrococcygeal disorders, not elsewhere classified (principal)

== ENCOUNTER → 2020-01-18 | Outpatient (CLI) | payer OTHER, MEDICAID | LOC: M LABSMTC 10:07 | PROVIDERS: ATTEND Orthopaedic Surgery | DX: Z01.812 Encounter for preprocedural laboratory examination (principal); Z20.828 Contact with and (suspected) exposure to other viral communicable diseases ==